=== PATIENT | female | born 1945 | race Caucasian/White ===

== ENCOUNTER 2018-08-02 13:40 | Emergency (ER) | payer OTHER ==
[~2018-08-02] VITALS: Ht 160 cm; Wt 71.7 kg
[~2018-08-02 13:40] MED LIST: BONIVA2.5 MG; CIPRO500 MG PO; CIPRO750 MG PO; CLONAZEPAM1 MG PO; COLACE100 MG PO; COZAAR50 MG; DICY20TA PO; INTESTINEX1 CA1 PO; METHYLPRED4 MG/DOSE- PO; NEURONTIN800 MG PO; PERCOCET 5/321 UDTAB PO; PERCOCET 5/3251 TAB PO; SYNTHROID88 MCG
[2018-08-02] MEDS ORDERED: INTESTINEX680 M1 PO (20:46)
[2018-08-02] MEDS ORDERED: CECLOR500 MG PO (20:46)
[2018-08-02] MEDS ORDERED: CELEBREX100 MG PO (20:46)
== END 2018-08-02 20:39 | disposition home or self-care (01) ==
LOC: ER 13:40
DX: K57.30 Diverticulosis of large intestine without perforation or abscess without bleeding (principal); N39.0 Urinary tract infection, site not specified; R10.32 Left lower quadrant pain

== ENCOUNTER 2019-05-22 04:57 | Emergency (ER) | payer OTHER ==
[~2019-05-22] VITALS: Ht 154.9 cm; Wt 52.2 kg
[~2019-05-22 04:57] MED LIST changes: +CECLOR500 MG PO; +CELEBREX100 MG PO; +INTESTINEX680 M1 PO
== END 2019-05-22 09:01 | disposition designated cancer center or children's hospital (05) ==
LOC: ER 04:57
DX: S72.321A Displaced transverse fracture of shaft of right femur, initial encounter for closed fracture (principal); I16.1 Hypertensive emergency; I10 Essential (primary) hypertension; W01.198A Fall on same level from slipping, tripping and stumbling with subsequent striking against other object, initial encounter; Y93.89 Activity, other specified; Y92.018 Other place in single-family (private) house as the place of occurrence of the external cause; Y99.8 Other external cause status

== ENCOUNTER → 2021-05-12 09:17 | Outpatient (CLI) | payer OTHER | END | disposition home or self-care (01) | LOC: EKG 09:17 | PROVIDERS: ATTEND Internal Medicine | DX: Z01.810 Encounter for preprocedural cardiovascular examination (principal); R07.9 Chest pain, unspecified ==